=== PATIENT | female | born 2000 | race Caucasian/White ===

== ENCOUNTER 2022-05-15 05:10 | Inpatient (IN) | payer OTHER ==
[2022-05-15 06:31] LABS: Basophils # (A) 0.1 k/uL (0-0.2); Basophils % (A) 0 %; Eosinophils # (A) 0.1 k/uL (0-0.7); Eosinophils % (A) 1 %; HCT 33.6 % (34.0-46.0); HGB 11.3 gm/dL (11.4-16.0); Lymphocytes # (A) 2.2 k/uL (1.0-4.8); Lymphocytes % (A) 20 %; MCH 27.4 pg (25.0-35.0); MCHC 33.5 g/dL (31.0-37.0); MCV 81.9 fL (80.0-100.0); Mean Platelet Volume 7.4; Monocytes # (A) 0.6 k/uL (0-1.0); Monocytes % (A) 6 %; Neutrophils # (A) 8.3 k/uL (1.3-7.7); Neutrophils % (A) 73 %; Platelet Count 328 k/uL (150-450); Poikilocytosis Slight; RDW 13.4 % (11.5-15.5); WBC 11.4 k/uL (3.8-10.6)
[2022-05-15] MEDS ORDERED: TERBUTALINE 1 MG/ML VIAL SQ PRN (07:13)
[2022-05-15] MEDS ORDERED: PENICILLIN G POTASSIUM 5,000,000 UNIT in DEXTROSE 5% IN WATER 100 ML IVPB STA ×2 (07:13)
[2022-05-15] MEDS ORDERED: CARBOPROST TROMETHAMINE 250 MCG/ML 1 ML AMP IM PRN (07:14)
[2022-05-15] MEDS ORDERED: LIDOCAINE 0.5% (PF) 5 MG/ML (50 ML SDV) SQ PRN (07:14)
[2022-05-15] MEDS ORDERED: OXYTOCIN 10 UNIT/ML 1 ML VIAL IM PRN (07:14)
[2022-05-15] MEDS ORDERED: LACTATED RINGERS 1,000 ML IV SCH (07:15)
--- NOTE | 2022-05-15 08:31 | P.HPOB ---
History of Present Illness H&P Date: 05/15/22 Chief Complaint: Strong regular uterine contractions, cervical change in triage This is a 21-year-old female 3 para 2001 EDC 06/16/2022 at 35-3/7 weeks' gestation. Patient presents with bloody show in the triage area, strong regular uterine contractions, in early active labor. Past medical history is significant for MTHFR, and anemia. Past surgical history stomach surgery age 5, tonsillectomy as a child. Current medications baby aspirin daily, vitamin daily, vitamin B6 daily. ALLERGIES latex, reaction unknown. Family history is significant for MTHFR.. history, early care at [facility], patient has had 2 previous vaginal deliveries, uncomplicated. Social history patient has never been a smoker, she denies alcohol or drug use. She is , is at the bedside. history is significant for blood type O+, rubella status immune. Hepatitis B surface antigen, HIV testing, gonorrhea and chlamydia cultures all negative. Group B strep cultures not yet completed. One-hour Glucola 109. On exam patient is 5 foot 2 inches, 172 pounds, blood pressure on admission 116/65. General physical exam is within normal limits. Extremities reveal no edema. Cervix is 8 cm dilated, 80% effaced, -2 station, vertex presentation. Artificial amniorrhexis reveals slightly bloody stained fluid. heart rate is consistent with reactive NST. Impression: 35-3/7 weeks intrauterine , active spontaneous labor. All signs reassuring. Plan: Penicillin G prophylaxis has been started. Close maternal and surveillance. Patient is using the nitrous gas at the bedside as needed for pain. Anticipate normal spontaneous vaginal delivery. Review of Systems Constitutional: Reports as per HPI Past Medical History Additional Past Medical History / Comment(s): MTHFR History of Any Multi-Drug Resistant Organisms: None Reported Smoking Status: Never smoker Medications and Allergies Home Medications Medication Instructions Recorded Confirmed Type Aspirin [Adult Low Dose Aspirin EC] 81 mg PO DAILY 05/15/22 05/15/22 History Omeprazole [PriLOSEC] 20 mg PO DAILY 05/15/22 05/15/22 History Vit No.179/Iron/Folic 1 each PO DAILY 05/15/22 05/15/22 History [ Tablet] Sertraline [Zoloft] 50 mg PO DAILY 05/15/22 05/15/22 History Allergies Allergy/AdvReac Type Severity Reaction Status Date / Time diphenhydramine Allergy Unknown Verified 05/15/22 05:31 [From Benadryl] latex AdvReac Rash/Hives Verified 05/15/22 05:30 Exam Intake and Output 05/14/22 05/15/22 05/15/22 22:59 06:59 14:59 Other: Weight 78.018 kg See dictation under HPI please Results Result Diagrams: 05/15/22 06:00 Abnormal Lab Results - Last 24 Hours (Table) 05/15/22 Range/Units 06:00 WBC 11.4 H (3.8-10.6) k/uL Hgb 11.3 L (11.4-16.0) gm/dL Hct 33.6 L (34.0-46.0) % Neutrophils # 8.3 H (1.3-7.7) k/uL Assessment and Plan Assessment: 35-3/7 weeks intrauterine , active spontaneous labor. History of MTH of our. All signs reassuring. Plan: Penicillin G prophylaxis has been instituted for unknown group B strep status. Close maternal and surveillance. Anticipate normal spontaneous vaginal delivery. Time with Patient: Less than 30
[2022-05-15] MEDS ORDERED: diphenhydrAMINE 25 MG CAP PO PRN (09:36)
[2022-05-15] MEDS ORDERED: ZOLPIDEM 5 MG TAB PO PRN (09:36)
[2022-05-15] MEDS ORDERED: BENZOCAINE/MENTHOL SPRAY 1 GM/SPRAY AEROSOL TOPICAL PRN (09:36)
[2022-05-15] MEDS ORDERED: LANOLIN CREAM 5 GM TUBE TOPICAL PRN (09:36)
[2022-05-15] MEDS ORDERED: SIMETHICONE 80 MG CHEWABLE PO PRN (09:36)
[2022-05-15] MEDS ORDERED: HYDROCORTISONE 2.5% RECTAL CREAM 30 GM TUBE RECTAL PRN (09:36)
--- NOTE | 2022-05-15 09:36 | P.PROBDLV ---
Vaginal Delivery Note - . Vaginal Delivery Note: This is a 21-year-old white female 3 para 2001 EDC 06/16/2022 at 35-3/7 weeks' gestation who presented in active labor from home. Fetus is been active throughout the . Group B strep cultures unknown, otherwise unremarkable. Please see dictated history and physical for details. Artificial amniorrhexis revealed slightly bloody stained fluid. Uterus excised was given to the patient for analgesia per her request. She progressed well through the first stage of labor and became completely dilated at 0915 hours. Perineal body was prepped and draped in usual sterile fashion. With excellent maternal expulsive efforts the 's head delivered occiput anterior and restituted accordingly. There was a nuchal cord 1 that was reduced on the perineal body. Infant's head delivered occiput anterior and she restituted accordingly. There was a nuchal cord 1 that was reduced. The oropharynx, nasopharynx, and external nares were a thoroughly bulb suctioned. Patient was officially delivered of a liveborn female infant at 0917 hours. Umbilical cord was doubly clamped and ligated, she was handed to waiting nurses for evaluation where scores of 7 and 9 at one and 5 minutes respectively were given. weighed 5 lbs. 15 oz. or 11/10/2004 grams. Placenta delivered spontaneously, it was inspected and noted to be intact with trivascular cord at 0920 hours. He will be sent to pathology for evaluation for a 35 week delivery. Careful inspection of the cervix, vagina, perineum, periurethral, and perirectal areas revealed a small first-degree perineal laceration, easily repaired with a single [id number] stitch of 3-0 Rapide. Fundus is firm and in the midline, symmetric and 18 week size upon completion of delivery. All sponge needle and instrument counts are correct. Patient is allowed to begin the bonding experience in the LDR. Total estimated blood loss 200 mL's.
[2022-05-15] MEDS: IBUPROFEN 600 MG TAB PO PRN ×2 (10:04→16:14)
[2022-05-15] MEDS ORDERED: PENICILLIN G POTASSIUM 2,500,000 UNIT in DEXTROSE 5% IN WATER 100 ML IVPB SCH ×2 (12:00)
[2022-05-15] MEDS: ACETAMINOPHEN TAB 325 MG TAB PO PRN ×2 (14:46→20:09)
[2022-05-15] MEDS: SENNOSIDES-DOCUSATE SODIUM 1 EACH TAB PO SCH (20:11)
[2022-05-16] MEDS: IBUPROFEN 600 MG TAB PO PRN ×3 (01:36→23:50)
--- NOTE | 2022-05-16 07:25 | P.PNOBGVD ---
Subjective - Subjective Principal diagnosis: day 1 status post normal spontaneous vaginal delivery Interval history: Patient is doing well . She is ambulating and voiding without difficulty. She is tolerating a regular diet without nausea or vomiting. States her pain is well-controlled. Her lochia is moderate. She is pumping as her infant is in the nursery secondary to gestational age. Patient reports: Reports appetite normal, Reports voiding normally, Reports pain well controlled, Reports ambulating normally [place]: doing well (In the nursery) Objective - Latest Vital Signs Latest vital signs: Vital Signs Temp Pulse Resp BP Pulse Ox 05/16/22 00:00 98.2 F 86 16 106/60 97 05/15/22 20:00 98.3 F 91 16 107/61 97 05/15/22 16:00 98.1 F 76 16 114/64 05/15/22 11:30 99.2 F 88 14 119/56 05/15/22 11:00 91 14 111/58 05/15/22 10:30 85 14 113/56 05/15/22 10:15 87 14 109/55 05/15/22 10:00 89 14 114/58 05/15/22 09:45 98.6 F 89 14 114/58 05/15/22 09:30 100.2 F H 110 H 14 129/62 - Exam Extremities: Present: normal, edema Abdomen: Present: normal appearance Uterus: Present: normal, firm Assessment and Plan (1) 35 to 36 weeks gestation of Current Visit: Yes Status: Acute Code(s): QFL2109 - SNOMED Code(s): 355031881 (2) Active labor Current Visit: Yes Status: Acute Code(s): KFX6426 - SNOMED Code(s): 11 8888191 Plan: 21-year-old 3 now para 3 status post normal spontaneous vaginal delivery at 35-2/7 weeks. Patient is doing well . Continue routine care and anticipate discharge home tomorrow.
[2022-05-16] MEDS: SENNOSIDES-DOCUSATE SODIUM 1 EACH TAB PO SCH ×2 (08:17→20:17)
[2022-05-16] MEDS: ACETAMINOPHEN TAB 325 MG TAB PO PRN (08:17)
[2022-05-16 08:18] LABS: Basophils % (A) 0 %; Eosinophils # (A) 0.2 k/uL (0-0.7); Eosinophils % (A) 2 %; Hypochromasia Slight; Lymphocytes # (A) 2.5 k/uL (1.0-4.8); Lymphocytes % (A) 23 %; MCH 28.2 pg (25.0-35.0); MCHC 33.8 g/dL (31.0-37.0); MCV 83.5 fL (80.0-100.0); Mean Platelet Volume 7.1; Monocytes # (A) 0.5 k/uL (0-1.0); Monocytes % (A) 4 %; Neutrophils # (A) 7.5 k/uL (1.3-7.7); Neutrophils % (A) 68 %; Platelet Count 332 k/uL (150-450); Poikilocytosis Slight; RBC 3.24 m/uL (3.80-5.40); WBC 10.9 k/uL (3.8-10.6)
[2022-05-16 08:30] LABS: HGB 9.1 gm/dL (11.4-16.0)
[2022-05-16] MEDS: LACTATED RINGERS 1,000 ML IV SCH (12:33)
[2022-05-17] MEDS: SENNOSIDES-DOCUSATE SODIUM 1 EACH TAB PO SCH (08:21)
[2022-05-17] MEDS: ACETAMINOPHEN TAB 325 MG TAB PO PRN (08:21)
--- NOTE | 2022-05-17 10:56 | P.DS ---
Providers Date of admission: 05/15/22 06:50 Expected date of discharge: 05/17/22 Attending physician: Kleber Cordova Primary care physician: Stated None - Discharge Diagnosis(es) (1) 35 to 36 weeks gestation of Current Visit: Yes Status: Acute (2) Active labor Current Visit: Yes Status: Acute (3) Status post vaginal delivery Current Visit: Yes Status: Acute Hospital Course: This is a 21-year-old G3 now P3 that presented to labor and delivery at 35-3/7 weeks in active labor. Patient had been receiving routine care which had been essentially uncomplicated. Group beta strep cultures were unknown secondary to gestational age. Patient was admitted to labor and delivery amniotomy was performed and slightly bloody fluid stained fluid was appreciated. She used nitrous for pain control throughout labor. Patient made good progress through labor eventually becoming complete and she began pushing. She had a viable female infant at 917. Weight of 5 lbs. 15 oz. Patient did sustain a small first-degree perineal laceration which was repaired in the usual fashion. Patient's course has been essentially uneventful. On this day #2 she is a bleeding and voiding without difficulty. She is tolerating a regular diet without nausea or vomiting. She states her pain is well- controlled. Patient is stable for discharge today. Patient Condition at Discharge: Good Plan - Discharge Summary New Discharge Prescriptions: No Action Sertraline [Zoloft] 50 mg PO DAILY Aspirin [Adult Low Dose Aspirin EC] 81 mg PO DAILY Vit No.179/Iron/Folic [ Tablet] 1 each PO DAILY Omeprazole [PriLOSEC] 20 mg PO DAILY Discharge Medication List Aspirin [Adult Low Dose Aspirin EC] 81 mg PO DAILY 05/15/22 [History] Omeprazole [PriLOSEC] 20 mg PO DAILY 05/15/22 [History] Vit No.179/Iron/Folic [ Tablet] 1 each PO DAILY 05/15/22 [History] Sertraline [Zoloft] 50 mg PO DAILY 05/15/22 [History] Follow up Appointment(s)/Referral(s): Kleber Cordova MD [STAFF PHYSICIAN] - 6 Weeks Patient Instructions/Handouts: Vaginal Delivery (GEN), Vaginal Delivery (DC) Discharge Disposition: HOME SELF-CARE
[2022-05-17] MEDS: IBUPROFEN 600 MG TAB PO PRN (13:10)
[2022-05-17 16:18] VITALS: BP 108/62; PULSE 75; RESP 16; TEMP 98.1
== END 2022-05-17 19:15 | disposition home or self-care (01) | DRG 805 ==
LOC: FBPOP 05:10 → 4FBP 06:50
PROVIDERS: ADMIT Obstetrics & Gynecology; ATTEND Obstetrics & Gynecology
PROC: 10E0XZZ Delivery of Products of Conception, External Approach (ICD-10-PCS; principal; 2022-05-15)
PROC: 0HQ9XZZ Repair Perineum Skin, External Approach (ICD-10-PCS; 2022-05-15)
PROC: 10907ZC Drainage of Amniotic Fluid, Therapeutic from Products of Conception, Via Natural or Artificial Opening (ICD-10-PCS; 2022-05-15)
PROC: 4A0HXCZ Measurement of Products of Conception, Cardiac Rate, External Approach (ICD-10-PCS; 2022-05-15)
PROC: 3E033VJ Introduction of Other Hormone into Peripheral Vein, Percutaneous Approach (ICD-10-PCS; 2022-05-15)
DX: O69.81X0 Labor and delivery complicated by cord around neck, without compression, not applicable or unspecified (principal); O60.14X0 Preterm labor third trimester with preterm delivery third trimester, not applicable or unspecified; Z37.0 Single live birth; E72.12 Methylenetetrahydrofolate reductase deficiency; O70.0 First degree perineal laceration during delivery; Z3A.36 36 weeks gestation of pregnancy; O99.02 Anemia complicating childbirth; D64.9 Anemia, unspecified; O99.284 Endocrine, nutritional and metabolic diseases complicating childbirth; Z79.82 Long term (current) use of aspirin; Z79.899 Other long term (current) drug therapy; Z91.040 Latex allergy status; Z88.8 Allergy status to other drugs, medicaments and biological substances
CPT/HCPCS: 59025; 85025; 86850; 86900; 86901; 99213

== ENCOUNTER → 2024-04-05 | Outpatient (CLI) | payer BC ==
--- NOTE | 2024-04-05 11:36 | US ---
EXAMINATION TYPE: Transabdominal DATE OF EXAM: 04/05/2024 11:09 AM COMPARISON: NONE CLINICAL INDICATION: Female, 23 years old with history of O46.91 BLEEDING/SPOTTING; Bleeding and cram ping x 2 days EXAM PERFORMED: Transabdominal (TA) EXAM MEASUREMENTS: GESTATIONAL AGE / DATING Physician Established: (6 weeks/4 days) EDC: 11/25/2024 Dates by LMP: (6 weeks/4 days) EDC: 11/25/2024 Dates by First Scan: No previous this is first scan Dates by Current Scan for: No IUP seen at this time MATERNAL ANATOMY Uterus: 8.4 x 4.4 x 4.8cm Right Ovary: 2.8 x 1.6 x 1.9cm Left Ovary: 3.3 x 1.5 x 1.9cm Post CDS / Adnexa: wnl Presence of free fluid: no Presence of corpus luteal cyst: no Presence of subchorionic bleed: no GESTATION / SURVEY IUP: No IUP seen at this time Date of LMP: 02/19/2024 Beta HcG (if available): Not available at time of exam IMPRESSION: 1. No intrauterine identified. Correlate clinically and with serial beta hCG and pelvic ult rasound as clinically warranted.
== END | disposition home or self-care (01) ==
LOC: RADUSWWP 10:36
PROVIDERS: ATTEND Obstetrics & Gynecology
DX: O20.0 Threatened abortion (principal)
CPT/HCPCS: 76801; 84702